=== PATIENT | female | born 1950 | race Asian ===

== ENCOUNTER → 2016-07-03 | Outpatient (CLI) | payer MEDICARE, OTHER ==
[~2016-07-03] VITALS: Ht 160.2 cm; Wt 60.0 kg
[~2016-07-03] MED LIST: ALBUTEROL0.09 MG/A4 IH; ALLEGRA 180MG180 MG PO; APRESOLINE 10MG10 MG PO; APRESOLINE50 MG PO; ASPIRIN 81M81 MG/TA2 PO; ASPIRIN E.C. 8181 MG PO; ATIVAN 1MG T1 MG/TAB; ATIVAN 1MG T1 MG/TAB PO; CATAPRES 0.1MG0.1 MG PO; CELEXA20 MG PO; CLARITIN 1010 MG/TAB PO; CLARITIN-D 10 M1 T24 PO; COLACE 100100 MG/CAP PO; COREG 25MG25 MG/TAB PO; COREG12.5 MG PO; COREG6.25 MG PO; DULCOLAX PO; FEROSUL325 MG PO; FERRATE325 MG PO; FOLIC ACID 11 MG/TA1 PO; FOLIC ACID1 MG PO; HCTZ 25MG TAB25 MG PO; LOW DOSE ASPIRI81 MG PO; MICARDIS80 MG PO; NAMENDA; NAMENDA5 MG PO; NEPHROCAP PO; NEPHROCAPS QT1 ODT PO; NORCO 325 MG-51 TAB PO; NORVASC 10MG10 MG PO; PEPCID 20MG TAB20 MG PO; PHENERGAN 25 TA25 MG PO; PHOS LO PO; PHOSLO667 MG PO; PRO AIR INHALER IH; PROAIR HFA0.09 MG/AC IH; SEROQUEL 2525 MG/TAB PO; TRIPHROCAPS SOFT1 MG PO; TRIPHROCAPS1 SGL PO; TYLENOL 325MG325 MG PO; TYLENOL EXTRA500 M1 PO; TYLENOL PM EXTR1 CAP PO; ULTRAM 50MG TAB50 MG PO; VITAMIN B6250 MG PO; VITAMIN C500 MG PO; VITAMIN D NATU400 IU PO; VITAMIN D31 LIQ PO; VITAMIN D31000 IU PO; ZESTRIL40 MG PO; ZOLOFT 25MG25 MG PO; ZOLOFT 50MG50 MG PO
[2016-07-03 08:54] VITALS: BP 188/85; PULSE 94
[2016-07-03 09:51] VITALS: BP 152/72; PULSE 89
[2016-07-03 09:52] VITALS: BP 113/53; PULSE 92
[2016-07-03 09:53] VITALS: BP 118/53; PULSE 89
[2016-07-03 09:54] VITALS: BP 134/65; PULSE 93
== END ==
LOC: COL.CARD 08:05
DX: Z01.810 Encounter for preprocedural cardiovascular examination (principal); R94.39 Abnormal result of other cardiovascular function study
CPT/HCPCS: A9502; J2785

== ENCOUNTER 2016-08-05 12:09 | Day surgery (SDC) | payer MEDICARE, OTHER ==
[~2016-08-05] VITALS: Ht 154.9 cm; Wt 60.4 kg
[2016-08-05] VITALS (9 sets, daily range): BP systolic 154–216; BP diastolic 57–82; PULSE 68–74; TEMP 97.1–98.8
[2016-08-05 12:55] LABS: MEAN CELL VOLUME 100 fl (80.0-100.0); MEAN CORPUSCULAR HGB CONC 32 g/dl (33.0-37.0); MEAN PLATELET VOLUME 9.2 fl (7.4-10.4); PLATELET COUNT 183 K/mm3 (130-400); RED BLOOD COUNT 2.63 M/mm3 (4.10-5.30); WHITE BLOOD COUNT 5.9 K/mm3 (4.8-10.8)
[2016-08-05 12:59] LABS: HEMATOCRIT 26.3 % (37.0-47.0); HEMOGLOBIN 8.5 g/dl (12.5-16.0); MEAN CORPUSCULAR HEMOGLOBIN 32 pg (27.0-31.0)
[2016-08-05 13:01] LABS: CALCIUM 6.9 mg/dL (8.4-10.2); INR 1.1 (0.8-3.0); POTASSIUM 5.2 mmol/L (3.4-5.0); PROTHROMBIN TIME 11.7 SECONDS (9.7-12.8)
[2016-08-05 13:05] LABS: CREATININE, serum 7.96 mg/dL (0.52-1.25)
== END 2016-08-05 17:21 | disposition home or self-care (01) ==
LOC: EUO 12:09 → COL.RAD 12:45 → EUO 17:21
PROVIDERS: Internal Medicine Interventional Cardiology
DX: R94.39 Abnormal result of other cardiovascular function study (principal); R06.02 Shortness of breath; R09.89 Other specified symptoms and signs involving the circulatory and respiratory systems; I12.9 Hypertensive chronic kidney disease with stage 1 through stage 4 chronic kidney disease, or unspecified chronic kidney disease; N18.9 Chronic kidney disease, unspecified; Z99.2 Dependence on renal dialysis; F17.210 Nicotine dependence, cigarettes, uncomplicated
CPT/HCPCS: C1760; C1894; J2250; J3010; Q9967

== ENCOUNTER → 2016-12-18 | Outpatient (CLI) | payer MEDICARE, OTHER | LOC: MC.RAD 14:33 | DX: Z12.31 Encounter for screening mammogram for malignant neoplasm of breast (principal) ==

== ENCOUNTER 2017-03-09 18:00 | Inpatient (IN) | payer MEDICARE, OTHER ==
[~2017-03-09] VITALS: Ht 152.4 cm; Wt 56.7 kg
[2017-03-09 18:21] VITALS: BP 159/112; PULSE 78; TEMP 99.1
[2017-03-09 19:03] LABS: BASO % 0.7 % (0.0-2.0); EOS # 0.1 (0.0-0.7); EOS % 1.9 % (0-4.0); GRAN # 3.7 (1.4-6.5); GRAN % 65.8 % (42.2-75.2); LYMPH # 1.2 (1.2-3.4); LYMPH % 20.9 % (20.0-51.0); MEAN CELL VOLUME 98 fl (80.0-100.0); MEAN CORPUSCULAR HGB CONC 32 g/dl (33.0-37.0); MEAN PLATELET VOLUME 9.5 fl (7.4-10.4); MONO # 0.6 (0.1-0.6); MONO % 10.5 % (1.7-9.3); PLATELET COUNT 211 K/mm3 (130-400); RED BLOOD COUNT 2.96 M/mm3 (4.10-5.30); WHITE BLOOD COUNT 5.7 K/mm3 (4.8-10.8)
[2017-03-09 19:11] LABS: HEMOGLOBIN 9.3 g/dl (12.5-16.0); MEAN CORPUSCULAR HEMOGLOBIN 31 pg (27.0-31.0)
[2017-03-09 19:14] LABS: ADJUSTED CALCIUM 7.7 mg/dL (8.4-10.2); ALBUMIN 4.3 gm/dL (3.5-5.0); BILIRUBIN,TOTAL 0.6 mg/dL (0.0-1.0); CALCIUM 7.9 mg/dL (8.4-10.2); POTASSIUM 4.4 mmol/L (3.4-5.0); TOTAL PROTEIN 7.2 gm/dL (6.4-8.2)
[2017-03-09 19:16] LABS: CREATININE, serum 6.02 mg/dL (0.52-1.25)
[2017-03-09 20:36] VITALS: BP 159/88; PULSE 77; TEMP 98.5
[2017-03-10 00:55] VITALS: BP 174/72; PULSE 75; TEMP 98.9
[2017-03-10 04:39] VITALS: BP 154/76; PULSE 75; TEMP 97.6
[2017-03-10 07:59] VITALS: BP 155/72; PULSE 74; TEMP 98.7
[2017-03-10 10:35] LABS: ALBUMIN 4.6 gm/dL (3.5-5.0); CALCIUM 8.6 mg/dL (8.4-10.2); CREATININE, serum 3.24 mg/dL (0.52-1.25); PHOSPHOROUS 2.5 mg/dL (2.5-4.5); POTASSIUM 3.7 mmol/L (3.4-5.0)
[2017-03-10 12:18] VITALS: BP 202/68; PULSE 68; TEMP 98.4
[2017-03-10 16:27] VITALS: BP 207/96; PULSE 71; TEMP 98.6
[2017-03-10 21:14] VITALS: BP 190/76; PULSE 70; TEMP 97.6
[2017-03-11 00:12] VITALS: BP 161/139; PULSE 65; TEMP 98.2
[2017-03-11 03:08] VITALS: BP 135/57; PULSE 63; TEMP 98.3
[2017-03-11 07:30] VITALS: BP 156/97; PULSE 62; TEMP 98.7
[2017-03-11 07:43] LABS: ALBUMIN 4.3 gm/dL (3.5-5.0); CALCIUM 8.3 mg/dL (8.4-10.2); PHOSPHOROUS 4.1 mg/dL (2.5-4.5); POTASSIUM 4.5 mmol/L (3.4-5.0)
[2017-03-11 07:59] LABS: CREATININE, serum 5.59 mg/dL (0.52-1.25)
[2017-03-11 08:13] VITALS: BP 156/97; PULSE 62; TEMP 98.7
== END 2017-03-11 12:12 | disposition home or self-care (01) | DRG 640 ==
LOC: MEDICAL 18:00
PROVIDERS: Internal Medicine Nephrology
PROC: 5A1D60Z (ICD-10-PCS; principal; 2017-03-10)
DX: E87.70 Fluid overload, unspecified (principal); N18.6 End stage renal disease; I13.11 Hypertensive heart and chronic kidney disease without heart failure, with stage 5 chronic kidney disease, or end stage renal disease; D63.1 Anemia in chronic kidney disease; F17.210 Nicotine dependence, cigarettes, uncomplicated; E11.22 Type 2 diabetes mellitus with diabetic chronic kidney disease; F03.90 Unspecified dementia, unspecified severity, without behavioral disturbance, psychotic disturbance, mood disturbance, and anxiety; Z99.2 Dependence on renal dialysis; Z91.11 Patient's noncompliance with dietary regimen
CPT/HCPCS: J0881

== ENCOUNTER → 2018-03-01 | Outpatient (CLI) | payer MEDICARE, OTHER | LOC: MC.RAD 14:00 | DX: Z12.31 Encounter for screening mammogram for malignant neoplasm of breast (principal); Z78.0 Asymptomatic menopausal state ==

== ENCOUNTER → 2018-10-20 | Outpatient (CLI) | payer MEDICARE, OTHER | LOC: COL.RAD 10:04 | DX: S82.092A Other fracture of left patella, initial encounter for closed fracture (principal) ==

== ENCOUNTER → 2019-10-05 | Outpatient (CLI) | payer MEDICARE, OTHER | LOC: ZCOL.LAB 09:51 | DX: Z03.818 Encounter for observation for suspected exposure to other biological agents ruled out (principal) ==

== ENCOUNTER → 2019-10-21 | Outpatient (CLI) | payer MEDICARE, OTHER | LOC: COL.RAD 10:19 | DX: S59.202A Unspecified physeal fracture of lower end of radius, left arm, initial encounter for closed fracture (principal); Z91.81 History of falling; Z89.022 Acquired absence of left finger(s); M85.80 Other specified disorders of bone density and structure, unspecified site ==